=== PATIENT | male | born 1930 | race Caucasian/White ===

== ENCOUNTER 2016-08-28 07:31 | Emergency (ER) | payer MEDICARE, BC ==
[2016-08-28 07:55] VITALS: BP 161/98
--- NOTE | 2016-08-28 08:31 | EDM.PDOC ---
ED HPI GENERAL MEDICAL PROBLEM - General Chief Complaint: ENT Problem Stated Complaint: PAIN IN NECK UP TO HEAD, RT EYE WATERING Time Seen by Provider: 08/28/16 08:31 Source of Information: Reports: Patient, Family, RN, RN Notes Reviewed History Limitations: Reports: No Limitations - History of Present Illness INITIAL COMMENTS - FREE TEXT/NARRATIVE: Pt reports that he woke this morning with his right eye red with yellow matting on the eyelids/lashes. Denies eye pain, but states that it feels irritated and slightly itches. Denies FB sensation or injury. Pt also c/o neck pain since or Sunday with some radiating pain coming up from the upper neck along the right side of the back of his head up to the frontal scalp. Denies pain to touch of the scalp, numbness, or tingling. He has been seeing a chiropractor for neck and back pain once a week for "a long time". Denies fever, chills, ear pain, sore throat, sinus pain or congestion. Onset: Today Duration: Constant Location: Reports: Other (Rt eye) Severity: Moderate Improves with: Reports: None Worsens with: Reports: None Associated Symptoms: Reports: No Other Symptoms - Related Data Allergies Allergy/AdvReac Type Severity Reaction Status Date / Time alendronate sodium Allergy Cannot Verified 08/28/16 07:55 [From Fosamax] Remember pravastatin Allergy Cannot Verified 08/28/16 07:55 Remember simvastatin Allergy Cannot Verified 08/28/16 07:55 Remember calcium containing compounds Allergy Cannot Uncoded 11/20/15 09:57 Remember Home Meds: Home Meds Aspirin [Adult Low Dose Aspirin EC] 81 mg PO DAILY 11/20/15 [History] Atenolol [Atenolol] 1 tab PO DAILY 11/20/15 [History] Ezetimibe [Zetia] 1 tab PO ASDIRECTED 11/20/15 [History] Fluticasone Propionate [Flonase] 0 gm NASBOTH ASDIRECTED PRN 11/20/15 [History] LORazepam [Ativan] 0 mg PO ASDIRECTED PRN 11/20/15 [History] Loratadine [Claritin] 10 mg PO DAILY PRN 11/20/15 [History] Omeprazole Magnesium [Prilosec Otc] 20 mg PO BID 11/20/15 [History] Warfarin [Coumadin] 4 mg PO ASDIRECTED 11/20/15 [History] Colestipol HCl [Colestid] 8 gm PO BID 08/28/16 [History] Past Medical History HEENT History: Reports: Epistaxis, Hard of Hearing, Impaired Vision Cardiovascular History: Reports: Aneurysm, CAD, High Cholesterol, Hypertension Other Cardiovascular History: AAA Respiratory History: Reports: None Gastrointestinal History: Reports: Diverticulosis Genitourinary History: Reports: Chronic Renal Insuffiency Musculoskeletal History: Reports: Other (See Below) Other Musculoskeletal History: DJD Neurological History: Reports: None Psychiatric History: Reports: None Endocrine/Metabolic History: Reports: None Hematologic History: Reports: Iron Deficiency Immunologic History: Reports: None Oncologic (Cancer) History: Reports: Prostate Dermatologic History: Reports: None - Past Surgical History Cardiovascular Surgical History: Reports: Coronary Artery Bypass GI Surgical History: Reports: Appendectomy, Cholecystectomy Social & Family History - Family History Family Medical History: Noncontributory - Tobacco Use Smoking Status *Q: Never Smoker - Recreational Drug Use Recreational Drug Use: No - Living Situation & Occupation Occupation: Retired ED ROS ENT - Review of Systems Review Of Systems: ROS reveals no pertinent complaints other than HPI. ED EXAM, ENT - Physical Exam Exam: See Below Exam Limited By: No Limitations General Appearance: Alert, WD/WN, No Apparent Distress Eye Exam: Right Eye: Conjunctival Injection, Periorbital Changes (erythema w/ mild inflammation to Rt upper & lower eyelids w/yellow matting), Left Eye: Normal Inspection, Bilateral Eye: EOMI, Normal Fundi, PERRL Ears: Normal External Exam, Normal Canal, Hearing Grossly Normal, Normal TMs Nose: Normal Inspection, Normal Mucousa, No Blood Mouth/Throat: Normal Inspection Head: Atraumatic, Normocephalic. No: Scalp Swelling, Scalp Tenderness, Facial Swelling, Facial Tenderness, Sinus Tenderness Neck: Supple, Full Range of Motion (w/subjective report of some tenderness with B/L rotation. No nuchal rigidity.). No: Lymphadenopathy (L), Lymphadenopathy (R ) Respiratory/Chest: No Respiratory Distress, Lungs Clear Cardiovascular: Regular Rate, Rhythm, No Edema Back: Normal Inspection Extremities: Normal Inspection Neurological: Alert, Oriented, CN II-XII Intact, Normal Cognition, No Motor/ Sensory Deficits Psychiatric: Normal Mood Skin: Warm, Dry, Intact Course - Vital Signs Last Recorded V/S: Last Vital Signs Temp 35.8 C 08/28/16 07:45 Pulse 75 08/28/16 07:45 Resp 18 08/28/16 07:45 BP 161/98 H 08/28/16 07:45 Pulse Ox 99 08/28/16 07:45 - Orders/Labs/Meds Meds: Medications Discontinued Medications Generic Name Dose Route Start Last Admin Trade Name Erik PRN Reason Stop Dose Admin Gentamicin Sulfate 1 ml 08/28/16 08:41 Garamycin 0.3% Ophth Soln EYERT 08/28/16 08:42 ONETIME ONE Prednisolone Acetate 1 ml 08/28/16 08:41 Pred Forte 1% Ophth Susp EYERT 08/28/16 08:42 ONETIME ONE Departure - Departure Time of Disposition: 08:44 Disposition: Home, Self-Care 01 Condition: good Clinical Impression: Occipital neuralgia of right side Conjunctivitis Qualifiers: Conjunctivitis type: acute Acute conjunctivitis type: bacterial Laterality: right Qualified Code(s): H10.31 - Unspecified acute conjunctivitis, right eye - Discharge Information Instructions: Bacterial Conjunctivitis, [id number], Occipital Neuralgia Forms: ED Department Discharge Additional Instructions: Gentamicin eye drops: One drop into right eye four times a day for 5 days. Rx: Levaquin 500mg Follow up with your eye doctor in 1 to 2 days for recheck. Follow up with your primary doctor or return to ER if you develop any rash patches to the right side of your scalp or forehead.
[2016-08-28] MEDS ORDERED: prednisoLONE Acetate 1% Ophth Susp 5 ML Bottle EYERT ONE (08:41)
[2016-08-28] MEDS ORDERED: Gentamicin 0.3% Ophth Soln 5 ML Bottle EYERT ONE (08:41)
[2016-08-28] MEDS ORDERED: prednisoLONE Acetate 1% Ophth Susp 5 ML Bottle EYEBOTH ONE (11:53)
== END 2016-08-28 09:06 | disposition home or self-care (01) ==
LOC: DL.ED 07:31
DX: H10.31 Unspecified acute conjunctivitis, right eye (principal); M54.81 Occipital neuralgia; H54.7 Unspecified visual loss; E78.00 Pure hypercholesterolemia, unspecified; I12.9 Hypertensive chronic kidney disease with stage 1 through stage 4 chronic kidney disease, or unspecified chronic kidney disease; N18.9 Chronic kidney disease, unspecified; Z95.1 Presence of aortocoronary bypass graft; Z88.8 Allergy status to other drugs, medicaments and biological substances; Z79.82 Long term (current) use of aspirin; Z79.899 Other long term (current) drug therapy; Z79.01 Long term (current) use of anticoagulants; Z90.49 Acquired absence of other specified parts of digestive tract
CPT/HCPCS: 99283; A9270

== ENCOUNTER 2016-09-06 10:47 | Inpatient (IN) | payer MEDICARE, BC ==
[2016-09-06] MEDS ORDERED: guaiFENesin 100 MG/5 ML Soln 5 ML UD Cup PO PRN (15:40)
[2016-09-06] MEDS ORDERED: Ondansetron 4 MG Tab.DIS PO PRN (15:40)
[2016-09-06] MEDS ORDERED: Polyethylene Glycol 3350 Powder 17 GM Packet PO PRN (15:40)
[2016-09-06] MEDS ORDERED: Sodium Chloride 0.65% Nasal Spray 45 ML Bottle NAS PRN (15:40)
[2016-09-06] MEDS ORDERED: Loratadine 10 MG Tab PO PRN (15:44)
[2016-09-06] MEDS ORDERED: LORazepam 1 MG Tab PO PRN (15:44)
[2016-09-06] MEDS ORDERED: Fluticasone Propionate Nasal Spray 16 GM Bottle NASBOTH PRN (15:44)
[2016-09-06] MEDS ORDERED: Aluminum Hydroxide/Magnesium Hydroxide/Simethicone Susp 30 ML Cup PO PRN (15:44)
[2016-09-06] MEDS ORDERED: Warfarin 5 MG Tab PO SCH (15:45)
--- NOTE | 2016-09-06 15:53 | PCM.HP ---
H&P History of Present Illness - General Date of Service: 09/06/16 Admit Problem/Dx: Admission Diagnosis/Problem Admission Diagnosis/Problem Weakness Source of Information: Patient History Limitations: Reports: No Limitations - History of Present Illness Initial Comments - Free Text/Narative: 86-year-old male with past medical history of coronary artery disease, CABG, hypertension, hyperlipidemia, AAA, dementia, chronic anticoagulation for remote DVT presented from [facility] to swing bed for generalized weakness. He was admitted to the hospital initially for having right eye zoster infection. He was evaluated by infectious disease, and neurology and was treated with IV acyclovir then transitioned to oral Valtrex. He also was on IV steroids. During his hospitalization he developed delirium for a few days after admission. It was thought to be related to IV steroids/Decadron and Ativan usage and his dementia. CT of head showed no acute intracranial abnormalities. PCR of skin lesions detected herpes zoster. He is supposed to continue routine days of antiviral. So we will take Valtrex until Sunday. He is admitted to swing bed for generalized weakness and he will be having physical and occupational therapy - Related Data Allergies/Adverse Reactions: Allergies Allergy/AdvReac Type Severity Reaction Status Date / Time alendronate sodium Allergy Cannot Verified 09/06/16 14:06 [From Fosamax] Remember pravastatin Allergy Cannot Verified 09/06/16 14:06 Remember simvastatin Allergy Cannot Verified 09/06/16 14:06 Remember Home Medications: Home Meds Aspirin [Adult Low Dose Aspirin EC] 81 mg PO DAILY 11/20/15 [History] Atenolol [Atenolol] 50 mg PO DAILY 11/20/15 [History] Ezetimibe [Zetia] 10 mg PO DAILY 11/20/15 [History] LORazepam [Ativan] 0.5 mg PO ASDIRECTED PRN 11/20/15 [History] Loratadine [Claritin] 10 mg PO DAILY PRN 11/20/15 [History] Omeprazole Magnesium [Prilosec Otc] 20 mg PO BID 11/20/15 [History] Warfarin [Coumadin] 4 mg PO .SA.CHIRINOS 11/20/15 [History] Acetaminophen 650 mg PO Q4H PRN 09/06/16 [History] Ferrous Sulfate 325 mg PO ACBREAKFAST 09/06/16 [History] Fluticasone Propionate [Flonase] 2 spray NASBOTH DAILY PRN 09/06/16 [History] Gentamicin [Garamycin 0.3% Ophth Soln] 1 drop EYERT QID 09/06/16 [History] Latanoprost [Xalatan 0.005% Ophth Soln] 2.5 ml EYERT BEDTIME 09/06/16 [History] Mag Hydrox/Al Hydrox/Simeth [Maalox Maximum Strength Susp] 15 ml PO QID PRN [History] Warfarin [Coumadin] 5 mg PO .MO.WE.FR 09/06/16 [History] prednisoLONE Acetate [Pred Forte 1% Ophth Susp] 1 drop EYERT QID 09/06/16 [ History] valACYclovir [Valtrex] 1,000 mg PO TID 09/06/16 [History] Past Medical History HEENT History: Reports: Epistaxis, Hard of Hearing, Impaired Vision Cardiovascular History: Reports: Aneurysm, CAD, High Cholesterol, Hypertension Other Cardiovascular History: AAA Respiratory History: Reports: None Gastrointestinal History: Reports: Cholelithiasis, Diverticulosis, GERD Genitourinary History: Reports: Chronic Renal Insuffiency Musculoskeletal History: Reports: Osteoarthritis, Other (See Below) Other Musculoskeletal History: DJD Neurological History: Reports: None Psychiatric History: Reports: None Endocrine/Metabolic History: Reports: None Hematologic History: Reports: Iron Deficiency Immunologic History: Reports: None Oncologic (Cancer) History: Reports: Prostate Dermatologic History: Reports: None - Infectious Disease History Infectious Disease History: Reports: Chicken Pox, Shingles - Past Surgical History HEENT Surgical History: Reports: Cataract Surgery Cardiovascular Surgical History: Reports: AAA repair, Coronary Artery Bypass GI Surgical History: Reports: Appendectomy, Cholecystectomy Musculoskeletal Surgical History: Reports: Other (See Below) Other Musculoskeletal Surgeries/Procedures:: injections to knees for arthritic pain, sciatica Social & Family History - Family History Family Medical History: Noncontributory - Tobacco Use Smoking Status *Q: Never Smoker Second Hand Smoke Exposure: No - Caffeine Use Caffeine Use: Reports: Coffee, Soda - Recreational Drug Use Recreational Drug Use: No - Living Situation & Occupation Occupation: Retired H&P Review of Systems - Review of Systems: Review Of Systems: See Below General: Reports: No Symptoms HEENT: Reports: No Symptoms (Except rash on the face) Pulmonary: Reports: No Symptoms Cardiovascular: Reports: No Symptoms Gastrointestinal: Reports: No Symptoms Genitourinary: Reports: No Symptoms Musculoskeletal: Reports: No Symptoms Skin: Reports: No Symptoms Psychiatric: Reports: No Symptoms Neurological: Reports: No Symptoms Hematologic/Lymphatic: Reports: No Symptoms Immunologic: Reports: No Symptoms Exam - Exam Exam: See Below - Vital Signs Vital Signs: Last Vital Signs Temp 36.6 C 09/06/16 12:04 Pulse 79 09/06/16 12:04 Resp 20 09/06/16 12:04 BP 142/90 H 09/06/16 12:04 Pulse Ox 100 09/06/16 12:04 Weight: 73.028 kg - Exam General: Alert, Oriented, Cooperative, Mild Distress. No: Moderate Distress, Severe Distress, Sedated, Lethargic, Obtunded HEENT: Conjunctiva Clear, EACs Clear, EOMI, Hearing Intact, Mucosa Moist & Eliza , Nares Patent, Normal Nasal Septum, Posterior Pharynx Clear, Pupils Equal, Pupils Reactive, TMs Clear, Other (Right periorbital and frontal rash), PERRLA Neck: Supple, Trachea Midline, +2 Carotid Pulse wo Bruit Lungs: Clear to Auscultation, Normal Respiratory Effort Cardiovascular: Regular Rate, Regular Rhythm Abdomen: Normal Bowel Sounds, Soft, Pelvis Stable. No: Peritoneal Signs, Distention, Guarding, Rigidity, Rebound (Male) Exam: Deferred Rectal (Males) Exam: Deferred Back Exam: Normal Inspection, Full Range of Motion Extremities: Normal Inspection, Normal Pulses. No: Clubbing, Cyanosis, Calf Tenderness Skin: Warm, Dry, Intact Neurological: Cranial Nerves Intact, Strength Equal Bilateral, Normal Speech, Normal Tone, Sensation Intact Neuro Extensive - Mental Status: Alert, Oriented x3, Normal Mood/Affect, Normal Cognition, Memory Intact Neuro Extensive - Motor, Sensory, Reflexes: CN II-XII Intact, Normal Gait Psychiatric: Alert, Normal Affect, Normal Mood *Q Meaningful Use (ADM) - VTE *Q VTE Criteria *Q: - Stroke *Q Stroke Criteria *Q: - AMI *Q AMI Criteria *Q: - Problem List (1) Generalized weakness SNOMED Code(s): 44741725 ICD Code: R53.1 - WEAKNESS Status: Acute Current Visit: Yes (2) Herpes zoster ophthalmicus, right eye SNOMED Code(s): 02524429 ICD Code: B02.30 - ZOSTER OCULAR DISEASE, UNSPECIFIED Status: Acute Current Visit: Yes (3) History of coronary artery disease SNOMED Code(s): 186986106 ICD Code: Z86.79 - PERSONAL HISTORY OF OTHER DISEASES OF THE CIRCULATORY SYSTEM Status: Chronic Current Visit: Yes (4) Chronic anticoagulation SNOMED Code(s): 398336008 ICD Code: Z79.01 - RESIDENTIAL (CURRENT) USE OF ANTICOAGULANTS Status: Chronic Current Visit: Yes (5) Hyperlipidemia SNOMED Code(s): 34588362 ICD Code: E78.5 - HYPERLIPIDEMIA, UNSPECIFIED Status: Chronic Current Visit: Yes (6) Anemia SNOMED Code(s): 809307947 ICD Code: D64.9 - ANEMIA, UNSPECIFIED Status: Chronic Current Visit: Yes (7) History of prostate cancer SNOMED Code(s): 618214376 ICD Code: Z85.46 - PERSONAL HISTORY OF MALIGNANT NEOPLASM OF PROSTATE Status: Chronic Current Visit: Yes (8) Low TSH level SNOMED Code(s): 963429895 ICD Code: R94.6 - ABNORMAL RESULTS OF THYROID FUNCTION STUDIES Status: Acute Current Visit: Yes Problem List Initiated/Reviewed/Updated: Yes Orders Last 24hrs: Active Orders 24 hr Category Date Time Status Patient Status [ADT] Routine ADT 09/06/16 15:40 Active Ambulate [RC] ASDIRECTED Care 09/06/16 15:40 Active Antiembolic Devices [RC] PER UNIT ROUTINE Care 09/06/16 15:43 Active Height and Weight [RC] WEEKLY Care 09/06/16 15:41 Active Intake and Output [RC] ASDIRECTED Care 09/06/16 15:40 Active May Shower [RC] ASDIRECTED Care 09/06/16 15:40 Active Notify Provider Vital Signs [RC] ASDIRECTED Care 09/06/16 15:41 Active Oxygen Therapy [RC] PRN Care 09/06/16 15:40 Active Up With Assistance [RC] ASDIRECTED Care 09/06/16 15:40 Active Up ad Shala [RC] ASDIRECTED Care 09/06/16 15:40 Active VTE/DVT Education [RC] PER UNIT ROUTINE Care 09/06/16 15:40 Active Vital Signs [RC] PER UNIT ROUTINE Care 09/06/16 15:40 Active OT Evaluation and Treatment [CONS] Routine Cons 09/06/16 15:40 Active PT Evaluation and Treatment [CONS] Routine Cons 09/06/16 15:40 Active Regular Diet [DIET] Diet 09/06/16 Breakfast Active Acetaminophen [Tylenol] Med 09/06/16 15:40 Ordered 650 mg PO Q4H PRN Aspirin [Halfprin] Med 09/07/16 09:00 Ordered 81 mg PO DAILY Atenolol [Tenormin] Med 09/07/16 09:00 Ordered 50 mg PO DAILY Docusate Sodium [Colace] Med 09/06/16 15:40 Ordered 100 mg PO BID PRN Ezetimibe [Zetia] Med 09/07/16 09:00 Ordered 10 mg PO DAILY Ferrous Sulfate Med 09/07/16 06:00 Ordered 325 mg PO ACBREAKFAST Fluticasone Propionate [Flonase] Med 09/06/16 15:44 Ordered 2 spray NASBOTH DAILY PRN Gentamicin [Garamycin 0.3% Ophth Soln] Med 09/06/16 17:00 Ordered 1 drop EYERT QID LORazepam [Ativan] Med 09/06/16 15:44 Ordered 0.5 mg PO ASDIRECTED PRN Latanoprost [Xalatan 0.005% Ophth Soln] Med 09/06/16 21:00 Ordered 2.5 ml EYERT BEDTIME Loratadine [Claritin] Med 09/06/16 15:44 Ordered 10 mg PO DAILY PRN Mag Hydrox/Al Hydrox/Simeth [Maalox Maximum Strength Med 09/06/16 15:44 Ordered Susp] 15 ml PO QID PRN Omeprazole Magnesium [Prilosec Otc] Med 09/06/16 21:00 Ordered 20 mg PO BID Ondansetron [Zofran ODT] Med 09/06/16 15:40 Ordered 4 mg PO Q6H PRN Polyethylene Glycol 3350 [MiraLAX] Med 09/06/16 15:40 Ordered 17 gm PO DAILY PRN Sodium Chloride 0.65% [[place] Nasal Sheldon] Med 09/06/16 15:40 Ordered 1 ml CASSIE BID PRN Warfarin Med 09/06/16 15:45 Ordered 4 mg PO .. Warfarin [Coumadin] Med 09/06/16 15:45 Ordered 5 mg PO .MO guaiFENesin [Robitussin] Med 09/06/16 15:40 Ordered 100 mg PO Q4H PRN prednisoLONE Acetate [Pred Forte 1% Ophth Susp] Med 09/06/16 17:00 Ordered 1 drop EYERT QID valACYclovir [Valtrex] Med 09/06/16 21:00 Ordered 1,000 mg PO TID Antiembolic Hose [OM.PC] Per Unit Routine Oth 09/06/16 15:42 Ordered Resuscitation Status Routine Resus Stat 09/06/16 15:40 Ordered Medication Orders Acetaminophen (Tylenol) 650 mg PO Q4H PRN PRN Reason: Pain (Mild 1-3)/fever Docusate Sodium (Colace) 100 mg PO BID PRN PRN Reason: Constipation Guaifenesin (Robitussin) 100 mg PO Q4H PRN PRN Reason: Cough Ondansetron HCl (Zofran Odt) 4 mg PO Q6H PRN PRN Reason: nausea, able to take PO Polyethylene Glycol (Miralax) 17 gm PO DAILY PRN PRN Reason: Constipation Sodium Chloride ([place] Nasal Sheldon) 1 ml CASSIE BID PRN PRN Reason: Nasal Congestion Assessment/Plan Comment:: Generalized weakness, due to multiple reasons, such as recent hospitalization, steroids treatment, herpes zoster, multiple morbidities Encourage ambulation with assistance Occupational and physical therapy Right side herpes zoster ophthalmicus: 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 The rash is a crusted Continue Valtrex for another 11 doses, to complete 10 days of antiviral course Continue with the gentamicin eye Drops, Pred Forte eyedrops q.i.d. in the right eye, latanoprost eyedrops nightly as well. History of Coronary artery disease, stable. Continue the aspirin, atenolol, and Zetia at this time. Essential Hypertension Continue on atenolol Hyperlipidemia Continue on Zetia. Chronic anticoagulation with Coumadin. 4 remote history of bilateral DVT Pharmacy to dose his Coumadin Low TSH Recheck TSH Needs to be addressed by primary care provider History Deep venous thrombosis prophylaxis with Coumadin. Continue Coumadin to keep INR therapeutic Recent Delirium during hospitalization, now resolved, History of dementia Provide suitable environment He wants to be full code
[2016-09-06] MEDS: PREDNISOLONE ACETATE 1% EYERT SCH ×2 (18:01→20:36)
[2016-09-06] MEDS: Omeprazole 20 MG Cap.CR PO SCH (18:01)
[2016-09-06] MEDS: GENTAMICIN 0.3% EYERT SCH ×2 (18:01→20:33)
[2016-09-06] MEDS: LATANOPROST 0.005% EYERT SCH (20:38)
[2016-09-06] MEDS: VALACYCLOVIR 1000 MG PO SCH (20:38)
[2016-09-07] MEDS: Ferrous Sulfate 325 MG Tab PO SCH (06:34)
[2016-09-07] MEDS: Omeprazole 20 MG Cap.CR PO SCH ×2 (06:34→16:33)
[2016-09-07] MEDS: Atenolol 50 MG Tab PO SCH (08:41)
[2016-09-07] MEDS: Ezetimibe 10 MG Tab PO SCH (08:41)
[2016-09-07] MEDS: GENTAMICIN 0.3% EYERT SCH ×4 (08:41→22:20)
[2016-09-07] MEDS: Aspirin 81 MG Tab.EC PO SCH (08:42)
[2016-09-07] MEDS: PREDNISOLONE ACETATE 1% EYERT SCH ×4 (08:44→22:16)
[2016-09-07] MEDS: VALACYCLOVIR 1000 MG PO SCH ×3 (08:45→22:18)
[2016-09-07] MEDS ORDERED: Warfarin 2 MG Tab PO SCH (14:00)
[2016-09-07] MEDS ORDERED: Warfarin 2 MG Tab PO ONE (14:00)
[2016-09-07] MEDS: LATANOPROST 0.005% EYERT SCH (22:22)
[2016-09-08] MEDS: Ferrous Sulfate 325 MG Tab PO SCH (06:01)
[2016-09-08] MEDS: Omeprazole 20 MG Cap.CR PO SCH ×2 (06:01→18:18)
[2016-09-08] MEDS: Aspirin 81 MG Tab.EC PO SCH (10:41)
[2016-09-08] MEDS: Ezetimibe 10 MG Tab PO SCH (10:41)
[2016-09-08] MEDS: Atenolol 50 MG Tab PO SCH (10:41)
[2016-09-08] MEDS: VALACYCLOVIR 1000 MG PO SCH ×3 (10:43→20:42)
[2016-09-08] MEDS: GENTAMICIN 0.3% EYERT SCH ×4 (10:44→20:40)
[2016-09-08] MEDS: PREDNISOLONE ACETATE 1% EYERT SCH ×4 (10:44→20:41)
[2016-09-08] MEDS: LATANOPROST 0.005% EYERT SCH (20:41)
[2016-09-09] MEDS: Ferrous Sulfate 325 MG Tab PO SCH (05:34)
[2016-09-09] MEDS: Omeprazole 20 MG Cap.CR PO SCH ×2 (05:34→17:55)
[2016-09-09] MEDS: GENTAMICIN 0.3% EYERT SCH ×4 (09:41→21:37)
[2016-09-09] MEDS: VALACYCLOVIR 1000 MG PO SCH ×3 (09:42→21:36)
[2016-09-09] MEDS: Aspirin 81 MG Tab.EC PO SCH (09:43)
[2016-09-09] MEDS: Ezetimibe 10 MG Tab PO SCH (09:43)
[2016-09-09] MEDS: PREDNISOLONE ACETATE 1% EYERT SCH ×4 (09:43→21:38)
[2016-09-09] MEDS: Atenolol 50 MG Tab PO SCH (09:44)
[2016-09-09] MEDS: Gabapentin 100 MG Cap PO SCH ×2 (13:47→21:33)
[2016-09-09] MEDS: LATANOPROST 0.005% EYERT SCH (21:42)
[2016-09-09] MEDS: Acetaminophen 325 MG Tab PO PRN (21:53)
[2016-09-10] MEDS: Omeprazole 20 MG Cap.CR PO SCH ×2 (05:34→17:51)
[2016-09-10] MEDS: Ferrous Sulfate 325 MG Tab PO SCH (05:34)
[2016-09-10] MEDS: VALACYCLOVIR 1000 MG PO SCH (09:46)
[2016-09-10] MEDS: Aspirin 81 MG Tab.EC PO SCH (09:46)
[2016-09-10] MEDS: Atenolol 50 MG Tab PO SCH (09:46)
[2016-09-10] MEDS: Ezetimibe 10 MG Tab PO SCH (09:46)
[2016-09-10] MEDS: Gabapentin 100 MG Cap PO SCH ×3 (09:47→22:44)
[2016-09-10] MEDS: GENTAMICIN 0.3% EYERT SCH ×4 (09:48→22:42)
[2016-09-10] MEDS: PREDNISOLONE ACETATE 1% EYERT SCH ×4 (09:48→22:46)
[2016-09-10] MEDS: LATANOPROST 0.005% EYERT SCH (22:47)
[2016-09-11] MEDS: Omeprazole 20 MG Cap.CR PO SCH ×2 (05:55→18:05)
[2016-09-11] MEDS: Ferrous Sulfate 325 MG Tab PO SCH (05:55)
--- NOTE | 2016-09-11 06:46 | PN ---
DATE: 09/09/2016 SUBJECTIVE: The patient this morning is complaining of itching and burning pain on the right side of the his face, and this is the site where the scabbing of the herpes zoster. He is also complaining of some mild nausea. The patient denies any chest pain, shortness of breath, fever, or chills. So far, the patient has been lucid. OBJECTIVE: Vital Signs: Blood pressure is 147/81, pulse 78, respirations 20, temperature of 97.8. SHEENT: Still remarkable for some redness and scabbing on the right side of the head and face. There are no signs of secondary bacterial infection. Heart: Regular rate and rhythm. Normal S1 and S2. No gallops. No rubs. Lungs: Clear. No crackles. No wheezing. Abdomen: Soft and nontender. Extremities: Negative for any significant pedal edema. No calf tenderness. MEDICATIONS: Reviewed. PLAN: We will continue with his Valtrex and the rest of his medication. I am also going to start the patient on gabapentin 300 mg a day, and we will give him some Zofran for nausea. [facility] /[id number]
[2016-09-11] MEDS: Acetaminophen 325 MG Tab PO PRN ×2 (08:12→13:32)
[2016-09-11] MEDS ORDERED: Sodium Chloride 0.9% 10 ML Syringe FLUSH PRN (10:17)
[2016-09-11] MEDS: PREDNISOLONE ACETATE 1% EYERT SCH ×4 (11:07→20:29)
[2016-09-11] MEDS: Ezetimibe 10 MG Tab PO SCH (11:07)
[2016-09-11] MEDS: Atenolol 50 MG Tab PO SCH (11:07)
[2016-09-11] MEDS: GENTAMICIN 0.3% EYERT SCH ×4 (11:08→20:31)
[2016-09-11] MEDS: Gabapentin 100 MG Cap PO SCH ×3 (11:08→20:28)
[2016-09-11 11:15] LABS: CHLORIDE,CL 93 mmol/L (101-111); SODIUM,NA 128 mmol/L (135-145)
[2016-09-11] MEDS: Sodium Chloride 0.9% 1,000 ML IV SCH (12:57)
[2016-09-11] MEDS: Aspirin 81 MG Tab.EC PO SCH (13:32)
[2016-09-11] MEDS ORDERED: Warfarin 5 MG Tab PO ONE (14:00)
[2016-09-11] MEDS: LATANOPROST 0.005% EYERT SCH (20:33)
[2016-09-12] MEDS: Sodium Chloride 0.9% 1,000 ML IV SCH (04:03)
[2016-09-12] MEDS: Ferrous Sulfate 325 MG Tab PO SCH (05:37)
[2016-09-12] MEDS: Omeprazole 20 MG Cap.CR PO SCH ×2 (05:37→16:33)
[2016-09-12] MEDS: Ezetimibe 10 MG Tab PO SCH (08:21)
[2016-09-12] MEDS: Atenolol 50 MG Tab PO SCH (08:21)
[2016-09-12] MEDS: Gabapentin 100 MG Cap PO SCH ×3 (08:21→21:36)
[2016-09-12] MEDS: Aspirin 81 MG Tab.EC PO SCH (08:23)
[2016-09-12] MEDS: PREDNISOLONE ACETATE 1% EYERT SCH ×4 (08:24→21:38)
[2016-09-12] MEDS: GENTAMICIN 0.3% EYERT SCH ×4 (08:24→21:35)
[2016-09-12] MEDS: Levofloxacin 500 MG Tab PO SCH (11:57)
[2016-09-12] MEDS ORDERED: Warfarin 5 MG Tab PO ONE (14:00)
[2016-09-12] MEDS: LATANOPROST 0.005% EYERT SCH (21:55)
[2016-09-13] MEDS: Omeprazole 20 MG Cap.CR PO SCH ×2 (06:06→16:58)
[2016-09-13] MEDS: Ferrous Sulfate 325 MG Tab PO SCH (06:06)
--- NOTE | 2016-09-13 08:14 | PN ---
DATE: 09/12/2016 This note covers observations and orders of September 11 and . Mr. Echevarria is an 86-year-old gentleman with multiple medical problems including coronary artery disease with CABG, hypertension, dyslipidemia, AAA, cognitive impairment, chronic anticoagulation for remote DVT. He was admitted to swing bed following an acute admission to [place], when he presented with extensive right-sided herpes zoster of the head and face. Although he has extensive cutaneous involvement around the right eye, the eye itself apparently has been spared from viral infection. While in [place], he was seen by Infectious Disease and Neurology. He was initially treated with IV acyclovir, then transitioned to oral Valtrex. He was started on IV steroids, but unfortunately did not react to them well and had an increase in confusion and delirium. Steroids were stopped and he was placed on gabapentin for control of neuropathic pain. A head CT performed in [place] showed no acute intracranial abnormalities. PCR testing of the skin lesions was done and confirmed herpes zoster. He completed his course of Valtrex on September 10. He is now admitted to swing bed for generalized weakness and to work with Physical and Occupational Therapy. When first seen on the morning of September 11, he was quite lethargic, family was understandably concerned about his condition. He was noted also to have a temperature spike early in the morning of the to 101.2 degrees. There was no increase in confusion or encephalopathy. Because of the fever, we did a workup looking for a source. A portable chest x- ray was obtained, which did not show any acute infiltrate. There were no effusions. There was no pulmonary venous congestion. The aorta is ectatic. Lab work also included 2 sets of blood cultures, which have remained without growth. CBC showed a slightly elevated white count of 12.9, with 80% neutrophils, 14% lymphocytes. Hemoglobin and hematocrit were stable at 15.4 and 46.9, platelets were normal. Chemistry showed a sodium of 128, potassium 4.6, BUN and creatinine were preserved at 25 and 0.9, with a GFR of more than 60. LFTs showed a mildly elevated alk phos of 247. Urinalysis showed a clear yellow urine with a specific gravity of 1.010, and negative microscopic exam. Because the workup was nonfocal, we did not immediately start an antibiotic. We did start him on IV fluids though and placed him on normal saline. No other changes were made in his medications. Over the course of the day on the , he slowly improved, he became more alert, he voiced no new concerns or complaints. The extensive herpetic lesions on the right side of the face are drying up. There was no sign of associated cellulitis. Lab work was repeated on the morning of the . White count had increased slightly to 13,900, with 83% neutrophils, 8% lymphocytes, INR was 1.9, sodium had improved to 134. Blood cultures remained without growth. Because of the slight increase in the white count and the fact that we could not completely exclude some occult infection, particularly with the extensive herpetic lesions, we opted to start him on Levaquin 500 mg a day by mouth. He was seen frequently over the day, and he actually has continued to improve significantly throughout Sunday and Sunday. He was up and ambulatory with therapy, was able to walk from his room all the way back to the therapy room. He was looking and feeling better. He was able to talk to me today and he knew that he was feeling better. His memory of yesterday was somewhat clouded. He remembers that he did not feel well, but cannot give any specifics, but does say that he is feeling much better. I have spoken with his daughter several times and family also agrees that he is much improved. Family has also been concern with issues of placement following hospital stay. Family did go with Mrs. Echevarria to [facility], and they have decided to take an apartment in the assisted living center and family is also much relieved by this. Mr. Echevarria is in agreement with the move and family will begin the process of getting them moved there after discharge. Overall, things are looking better. Review of his clinical data shows that he is taking in adequate fluids, he is voiding, moving his bowels, appetite is improving, and he is tolerating his diet. Vital signs are stable. He has remained afebrile since the morning of September 11. PHYSICAL EXAMINATION: General: He is in bed, but he is awake and alert, clearly improved since yesterday. He voices no new concerns or complaints. He is able to say, however, that he is definitely feeling better. Vital Signs: Blood pressure 138/78, later in the day 117/82; pulse 76 and regular; respiratory rate 20 and unlabored; oxygen saturation high 90% on room air; and he has remained afebrile now for more than 24 hours. HEENT: Shows extensive resolving lesions on the right side of the face and scalp from his recent herpes zoster outbreak. The scabs are drying. There is no sign of extensive cellulitis. The right eyelid remains somewhat puffy and closed. HEENT was otherwise unremarkable. Mouth showed moist mucous membranes. Chest: Showed clear, but diminished bilateral breath sounds. Heart: Showed regular rate and rhythm. Abdomen: Soft, benign, nontender. Extremities: Showed YOVANI hose in place. The calves were soft and nontender. Neurologic: He was intact. He was able to be up and ambulatory with the use of his walker and standby assist. IMPRESSION: An 86-year-old gentleman with complicated medical course as described above. He is now improving over the last 48 hours with the use of IV fluids in the addition of an oral antibiotic. PLAN: We will continue the present management. We have stopped his IV fluids and Hep-Lock will be removed. He will continue on his usual medications and will complete a 7-day course of the oral Levaquin. Overall, he is much improved and stable. [facility] /[id number] CIELO
[2016-09-13] MEDS: Ezetimibe 10 MG Tab PO SCH (09:57)
[2016-09-13] MEDS: Gabapentin 100 MG Cap PO SCH ×3 (09:57→21:50)
[2016-09-13] MEDS: Aspirin 81 MG Tab.EC PO SCH (09:57)
[2016-09-13] MEDS: Atenolol 50 MG Tab PO SCH (09:57)
[2016-09-13] MEDS: PREDNISOLONE ACETATE 1% EYERT SCH ×4 (09:59→21:53)
[2016-09-13] MEDS: GENTAMICIN 0.3% EYERT SCH ×4 (09:59→21:51)
[2016-09-13] MEDS: Levofloxacin 500 MG Tab PO SCH (13:08)
[2016-09-13] MEDS: Acetaminophen 325 MG Tab PO PRN ×3 (13:11→21:59)
[2016-09-13] MEDS ORDERED: Warfarin 2 MG Tab PO ONE (14:00)
[2016-09-13] MEDS: LATANOPROST 0.005% EYERT SCH (21:55)
[2016-09-14] MEDS: Omeprazole 20 MG Cap.CR PO SCH ×2 (05:44→18:18)
[2016-09-14] MEDS: Ferrous Sulfate 325 MG Tab PO SCH (05:44)
[2016-09-14] MEDS: Acetaminophen 325 MG Tab PO PRN ×3 (07:40→18:38)
[2016-09-14] MEDS: Gabapentin 100 MG Cap PO SCH ×3 (09:32→21:10)
[2016-09-14] MEDS: Aspirin 81 MG Tab.EC PO SCH (09:33)
[2016-09-14] MEDS: Ezetimibe 10 MG Tab PO SCH (09:33)
[2016-09-14] MEDS: Atenolol 50 MG Tab PO SCH (09:34)
[2016-09-14] MEDS: PREDNISOLONE ACETATE 1% EYERT SCH ×4 (09:35→21:10)
[2016-09-14] MEDS: GENTAMICIN 0.3% EYERT SCH ×4 (09:35→21:13)
[2016-09-14] MEDS: Levofloxacin 500 MG Tab PO SCH (12:55)
[2016-09-14] MEDS ORDERED: Warfarin 2 MG Tab PO ONE (14:00)
[2016-09-14] MEDS: Vitamins A and D Oint 56.7 GM Tube TOP SCH ×2 (15:26→21:11)
[2016-09-14] MEDS: LATANOPROST 0.005% EYERT SCH (21:14)
--- NOTE | 2016-09-15 00:49 | PN ---
DATE: 09/14/2016 SUBJECTIVE: Mr. Echevarria is an 86-year-old gentleman with multiple medical problems. He was admitted to swing bed from [facility] where he was treated for an acute infection of herpes zoster of the right side of the head and face. Although he has periorbital soft tissue involvement. There was no involvement found of the eye itself. Earlier this week, he had developed a temperature of 101.2. Workup on that day showed negative chest x-ray and urine and blood cultures. The blood cultures have now remained without growth for 3 days. Because of his lethargy and fever, he was started on IV fluids for 24 hours and was empirically started on Levaquin for 7 days. By the next morning, he was much improved. On exam today, he was seated in his recliner. He looks much better. His color is improved. His face is more filled out. He is much more alert and participates throughout the visit. He is up and ambulatory with therapy. He voiced no new concerns or complaints. OBJECTIVE: Vital Signs: Blood pressure was 118/93, pulse 93, respiratory rate 20, oxygen saturation 100% on room air, and he is now remained afebrile since the temperature spike of 101 three days ago. Otherwise, his highest temperature has been 99.8. HEENT: Shows the neck to be supple. There are no meningeal signs. There is extensive scabbing, which is very tight and covers the right scalp, forehead, and surrounds the right eye. The right eye lid is quite indurated and staff with the scabbing and is difficult for him to actually fully open the eyelid. Chest: Clear but diminished bilateral breath sounds. Heart: Regular rate and rhythm. Abdomen: Benign. Neurologic: Intact. ASSESSMENT AND PLAN: We ordered A and D ointment to be applied topically 3 times a day to the area of the scabbing in an effort to soften the scabs. Hopefully, this will help him get the eye open. I did have a chance later to speak to one of the local cardiac technician regarding this, and she agreed with the approach we are taking. Otherwise, overall he is doing much better. The family will now be moving and Mrs. Mendoza into an assisted living complex at the end of next week. He has a care conference scheduled for Sunday, the , and discharge planning will be discussed at that time. No other changes are made today. [facility] /[id number] MTDЕлена
[2016-09-15] MEDS: Acetaminophen 325 MG Tab PO PRN ×2 (03:03→10:24)
[2016-09-15] MEDS: Omeprazole 20 MG Cap.CR PO SCH ×2 (06:29→18:10)
[2016-09-15] MEDS: Ferrous Sulfate 325 MG Tab PO SCH (06:29)
[2016-09-15] MEDS: Atenolol 50 MG Tab PO SCH (09:38)
[2016-09-15] MEDS: Gabapentin 100 MG Cap PO SCH ×3 (09:38→20:33)
[2016-09-15] MEDS: Ezetimibe 10 MG Tab PO SCH (09:39)
[2016-09-15] MEDS: Aspirin 81 MG Tab.EC PO SCH (09:39)
[2016-09-15] MEDS: PREDNISOLONE ACETATE 1% EYERT SCH ×4 (09:40→20:39)
[2016-09-15] MEDS: Vitamins A and D Oint 56.7 GM Tube TOP SCH ×3 (09:41→20:35)
[2016-09-15] MEDS: GENTAMICIN 0.3% EYERT SCH ×4 (09:43→20:46)
[2016-09-15] MEDS: Levofloxacin 500 MG Tab PO SCH (12:03)
[2016-09-15] MEDS ORDERED: Warfarin 2 MG Tab PO ONE (15:15)
[2016-09-15] MEDS: Lidocaine 5% 700 MG Patch TOP SCH (16:41)
[2016-09-15] MEDS: Acetaminophen 325 MG Tab PO SCH (20:33)
[2016-09-15] MEDS: LATANOPROST 0.005% EYERT SCH (20:48)
[2016-09-16] MEDS: Omeprazole 20 MG Cap.CR PO SCH ×2 (05:56→16:56)
[2016-09-16] MEDS: Ferrous Sulfate 325 MG Tab PO SCH (05:56)
[2016-09-16] MEDS: GENTAMICIN 0.3% EYERT SCH ×4 (08:01→21:26)
[2016-09-16] MEDS: Aspirin 81 MG Tab.EC PO SCH (08:05)
[2016-09-16] MEDS: Gabapentin 100 MG Cap PO SCH ×3 (08:09→21:20)
[2016-09-16] MEDS: Lidocaine 5% 700 MG Patch TOP SCH ×2 (08:09→13:07)
[2016-09-16] MEDS: Atenolol 50 MG Tab PO SCH (08:10)
[2016-09-16] MEDS: PREDNISOLONE ACETATE 1% EYERT SCH ×4 (08:10→21:14)
[2016-09-16] MEDS: Acetaminophen 325 MG Tab PO SCH ×3 (08:11→21:20)
[2016-09-16] MEDS: Ezetimibe 10 MG Tab PO SCH (08:11)
[2016-09-16] MEDS: Vitamins A and D Oint 56.7 GM Tube TOP SCH ×3 (08:13→21:15)
[2016-09-16] MEDS: Levofloxacin 500 MG Tab PO SCH (12:15)
[2016-09-16] MEDS: Acetaminophen 325 MG Tab PO PRN ×2 (12:15→18:35)
[2016-09-16] MEDS: LATANOPROST 0.005% EYERT SCH (21:19)
[2016-09-17] MEDS: Ferrous Sulfate 325 MG Tab PO SCH (05:56)
[2016-09-17] MEDS: Omeprazole 20 MG Cap.CR PO SCH ×2 (05:57→16:07)
[2016-09-17] MEDS: Acetaminophen 325 MG Tab PO PRN ×3 (06:05→16:07)
[2016-09-17] MEDS: Acetaminophen 325 MG Tab PO SCH ×3 (08:10→20:59)
[2016-09-17] MEDS: Ezetimibe 10 MG Tab PO SCH (08:12)
[2016-09-17] MEDS: Atenolol 50 MG Tab PO SCH (08:12)
[2016-09-17] MEDS: Aspirin 81 MG Tab.EC PO SCH (08:12)
[2016-09-17] MEDS: Gabapentin 100 MG Cap PO SCH ×3 (08:13→20:59)
[2016-09-17] MEDS: PREDNISOLONE ACETATE 1% EYERT SCH ×4 (08:14→21:06)
[2016-09-17] MEDS: GENTAMICIN 0.3% EYERT SCH ×4 (08:17→20:59)
[2016-09-17] MEDS: Lidocaine 5% 700 MG Patch TOP SCH ×2 (10:35)
[2016-09-17] MEDS: Vitamins A and D Oint 56.7 GM Tube TOP SCH ×3 (10:36→21:01)
[2016-09-17] MEDS: Levofloxacin 500 MG Tab PO SCH (12:10)
[2016-09-17] MEDS ORDERED: Gabapentin 100 MG Cap PO ONE (16:53)
[2016-09-17] MEDS: LATANOPROST 0.005% EYERT SCH (21:03)
[2016-09-18] MEDS: Ferrous Sulfate 325 MG Tab PO SCH (05:53)
[2016-09-18] MEDS: Omeprazole 20 MG Cap.CR PO SCH ×2 (05:53→16:57)
[2016-09-18 06:53] LABS: CHLORIDE,CL 96 mmol/L (101-111); SODIUM,NA 133 mmol/L (135-145)
[2016-09-18] MEDS: Aspirin 81 MG Tab.EC PO SCH (08:50)
[2016-09-18] MEDS: GENTAMICIN 0.3% EYERT SCH ×4 (08:50→21:18)
[2016-09-18] MEDS: Lidocaine 5% 700 MG Patch TOP SCH ×2 (08:50)
[2016-09-18] MEDS: Gabapentin 100 MG Cap PO SCH ×3 (08:51→21:20)
[2016-09-18] MEDS: Acetaminophen 325 MG Tab PO SCH ×3 (08:51→21:20)
[2016-09-18] MEDS: Ezetimibe 10 MG Tab PO SCH (08:52)
[2016-09-18] MEDS: PREDNISOLONE ACETATE 1% EYERT SCH ×4 (08:52→21:23)
[2016-09-18] MEDS: Vitamins A and D Oint 56.7 GM Tube TOP SCH ×3 (08:52→21:22)
[2016-09-18] MEDS: Atenolol 50 MG Tab PO SCH (08:52)
--- NOTE | 2016-09-18 11:54 | PCM.PN ---
- General Info Date of Service: 09/18/16 Admission Dx/Problem (Free Text): Admission Diagnosis/Problem Admission Diagnosis/Problem Weakness Subjective Update: Mr. Echevarria is feeling well, the pain in the right side of forehead and scalp is still present. The associated rash is improving. No new symptoms. He is working with physical therapy and occupational therapy. No chest pain, no shortness of breath, no fever. - Review of Systems General: Reports: Weakness. Denies: Fever Cardiovascular: Denies: Chest Pain Gastrointestinal: Denies: Abdominal pain Neurological: Denies: Confusion - Patient Data Vitals - most recent: Last Vital Signs Temp 36.9 C 09/18/16 07:38 Pulse 84 09/18/16 08:52 Resp 20 09/18/16 07:38 BP 110/64 09/18/16 08:52 Pulse Ox 97 09/18/16 07:38 Weight - most recent: 72.938 kg I&O - last 24 hours: Intake & Output 09/17/16 09/18/16 09/18/16 22:59 06:59 14:59 Intake Total 320 240 Balance 320 240 Lab Results last 24 hrs: Laboratory Results - last 24 hr 09/18/16 09/18/16 09/18/16 Range/Units 05:45 05:45 05:45 WBC 11.0 H (5.0-10.0) 10^3/uL Neut % (Auto) 79.9 H (42.2-75.2) % Lymph % (Auto) 10.3 L (20.5-50.1) % [place] % (Auto) 8.2 H (2-8) % Eos % (Auto) 1.4 (1.0-3.0) % Baso % (Auto) 0.2 (0.0-1.0) % PT 34.2 H (9.0-12.0) SEC INR 3.4 H (0.9-1.2) Sodium 133 L (135-145) mmol/L Potassium 4.5 (3.6-5.0) mmol/L Chloride 96 L (101-111) mmol/L Carbon Dioxide 27.0 (21.0-31.0) mmol/L Anion Gap 14.5 BUN 24 H (7-18) mg/dL Creatinine 0.9 (0.6-1.3) mg/dL Est Cr Clr Drug Dosing 58.06 mL/min Estimated GFR (MDRD) > 60 Glucose 92 (74-105) mg/dL Calcium 8.6 (8.4-10.2) mg/dl Med Orders - Current: Current Medications Acetaminophen (Tylenol) 650 mg PO Q4H PRN PRN Reason: Pain (Mild 1-3)/fever Last Admin: 09/17/16 16:07 Dose: 650 mg Acetaminophen (Tylenol) 325 mg PO TID [facility] Last Admin: 09/18/16 08:51 Dose: 325 mg Al Hydroxide/Mg Hydroxide (Mag-Al Plus) 15 ml PO QID PRN PRN Reason: Indigestion Aspirin (Halfprin) 81 mg PO DAILY [facility] Last Admin: 09/18/16 08:50 Dose: 81 mg Atenolol (Tenormin) 50 mg PO DAILY [facility] Last Admin: 09/18/16 08:52 Dose: 50 mg Docusate Sodium (Colace) 100 mg PO BID PRN PRN Reason: Constipation Ezetimibe (Zetia) 10 mg PO DAILY [facility] Last Admin: 09/18/16 08:52 Dose: 10 mg Ferrous Sulfate (Ferrous Sulfate) 325 mg PO ACBREAKFAST [facility] Last Admin: 09/18/16 05:53 Dose: 325 mg Fluticasone Propionate (Flonase) 0 gm NASBOTH DAILY PRN PRN Reason: Rhinitis Gabapentin (Neurontin) 200 mg PO TID [facility] Last Admin: 09/18/16 08:51 Dose: 200 mg Gentamicin Sulfate (Garamycin 0.3% Ophth Soln) 0 ml EYERT QID [facility] Last Admin: 09/18/16 08:50 Dose: 1 drop Guaifenesin (Robitussin) 100 mg PO Q4H PRN PRN Reason: Cough Latanoprost (Xalatan 0.005% Ophth Soln) 0 ml EYERT BEDTIME [facility] Last Admin: 09/17/16 21:03 Dose: 1 drop Levofloxacin (Levaquin) 500 mg PO Q24H [facility] Stop: 09/19/16 12:01 Last Admin: 09/17/16 12:10 Dose: 500 mg Lidocaine (Lidoderm 5%) 700 mg TOP DAILY [facility] Last Admin: 09/18/16 08:50 Dose: 700 mg Lidocaine (Lidoderm 5%) 700 mg TOP DAILY [facility] Last Admin: 09/18/16 08:50 Dose: 700 mg Loratadine (Claritin) 10 mg PO DAILY PRN PRN Reason: Allergies Miscellaneous Information (Remove Patch) 1 ea TRDERM BEDTIME [facility] Last Admin: 09/17/16 21:02 Dose: Not Given Miscellaneous Information (Remove Patch) 1 ea TRDERM DAILY@2100 [facility] Last Admin: 09/17/16 21:02 Dose: Not Given Omeprazole (Omeprazole) 20 mg PO BIDAC [facility] Last Admin: 09/18/16 05:53 Dose: 20 mg Ondansetron HCl (Zofran Odt) 4 mg PO Q6H PRN PRN Reason: nausea, able to take PO Last Admin: 09/16/16 11:40 Dose: 4 mg Polyethylene Glycol (Miralax) 17 gm PO DAILY PRN PRN Reason: Constipation Prednisolone Acetate (Pred Forte 1% Ophth Susp) 0 ml EYERT QID [facility] Last Admin: 09/18/16 08:52 Dose: 1 drop Sodium Chloride (Dargan Nasal [place]) 0 ml CASSIE BID PRN PRN Reason: Nasal Congestion Vitamin A/Vitamin D (Vitamin A & D) 0 gm TOP TID [facility] Last Admin: 09/18/16 08:52 Dose: 1 applic Warfarin Sodium (Pharmacy To Dose - Warfarin) 1 dose .XX ASDIRECTED [facility] Warfarin Sodium (Coumadin) 0.5 mg PO ONETIME ONE Stop: 09/18/16 14:01 Discontinued Medications Gabapentin (Neurontin) 100 mg PO TID [facility] Last Admin: 09/17/16 13:29 Dose: 100 mg Gabapentin (Neurontin) 100 mg PO ONETIME ONE Stop: 09/17/16 16:54 Last Admin: 09/17/16 17:04 Dose: 100 mg Sodium Chloride (Normal Saline) 1,000 mls @ 50 mls/hr IV ASDIRECTED [facility] Last Infusion: 09/12/16 11:30 Dose: Infused Lorazepam (Ativan) 0.5 mg PO ASDIRECTED PRN PRN Reason: Anxiety Valacyclovir [ Valtrex] 1,000 Mg Non-Formulary Med 1,000 mg PO TID [facility] Stop: 09/10/16 09:01 Last Admin: 09/10/16 09:46 Dose: 1,000 mg Sodium Chloride (Saline Flush) 10 ml FLUSH ASDIRECTED PRN PRN Reason: Keep Vein Open Last Admin: 09/12/16 11:31 Dose: 10 ml Warfarin Sodium (Coumadin) 4 mg PO SuTuThSa@1400 [facility] Warfarin Sodium (Coumadin) 5 mg PO .MO.WE.FR [facility] Warfarin Sodium (Coumadin) 2 mg PO ONETIME ONE Stop: 09/07/16 14:01 Last Admin: 09/07/16 14:11 Dose: 2 mg Warfarin Sodium (Coumadin) 3 mg PO DAILY@1400 [facility] Stop: 09/10/16 14:01 Last Admin: 09/10/16 15:01 Dose: 3 mg Warfarin Sodium (Coumadin) 5 mg PO ONETIME ONE Stop: 09/11/16 14:01 Last Admin: 09/11/16 13:31 Dose: 5 mg Warfarin Sodium (Coumadin) 5 mg PO ONETIME ONE Stop: 09/12/16 14:01 Last Admin: 09/12/16 13:28 Dose: 5 mg Warfarin Sodium (Coumadin) 6 mg PO ONETIME ONE Stop: 09/13/16 14:01 Last Admin: 09/13/16 13:08 Dose: 6 mg Warfarin Sodium (Coumadin) 6 mg PO ONETIME ONE Stop: 09/14/16 14:01 Last Admin: 09/14/16 13:00 Dose: 6 mg Warfarin Sodium (Coumadin) 6 mg PO ONETIME ONE Stop: 09/15/16 15:16 Last Admin: 09/15/16 15:53 Dose: 6 mg Warfarin Sodium (Coumadin) 3 mg PO ONETIME ONE Stop: 09/16/16 14:01 Last Admin: 09/16/16 13:09 Dose: 3 mg Warfarin Sodium (Coumadin) 1 mg PO ONETIME ONE Stop: 09/17/16 14:01 Warfarin Sodium (Coumadin) 0.5 mg PO ONETIME ONE Stop: 09/17/16 14:01 Last Admin: 09/17/16 13:30 Dose: 0.5 mg - Exam Quality Assessment: No: supplemental oxygen General: alert, oriented HEENT: Other (Rash on the right side of forehead and scalp. Swollen right eyelid.) Neck: supple Lungs: Clear to auscultation, Normal respiratory effort Cardiovascular: Regular Rate, Regular Rhythm Extremities: no edema - Problem List & Annotations (1) Generalized weakness SNOMED Code(s): 34724871 Code(s): R53.1 - WEAKNESS Status: Acute Current Visit: Yes - Problem List Review Problem List Initiated/Reviewed/Updated: Yes - Plan Plan:: Generalized weakness, due to multiple reasons, such as recent hospitalization, steroids treatment, herpes zoster, multiple morbidities Encourage ambulation with assistance Continue to work with Occupational and physical therapy Right side herpes zoster ophthalmicus: 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 Treated with Valtrex Continue with the gentamicin eye Drops, Pred Forte eyedrops q.i.d. in the right eye, latanoprost eyedrops nightly as well. History of Coronary artery disease, stable. Continue the aspirin, atenolol, and Zetia at this time. Essential Hypertension Continue on atenolol Hyperlipidemia Continue on Zetia. Chronic anticoagulation with Coumadin. for remote history of bilateral DVT Pharmacy to dose his Coumadin Low TSH Follow as outpatient History Deep venous thrombosis prophylaxis with Coumadin. Continue Coumadin to keep INR therapeutic Recent Delirium during hospitalization now resolved, History of dementia Provide suitable environment Possible urinary tract infection We'll finish levofloxacin antibiotic on 19 September.
[2016-09-18] MEDS: Levofloxacin 500 MG Tab PO SCH (12:11)
[2016-09-18] MEDS: LATANOPROST 0.005% EYERT SCH (21:24)
[2016-09-19] MEDS: Omeprazole 20 MG Cap.CR PO SCH ×2 (05:48→16:31)
[2016-09-19] MEDS: Ferrous Sulfate 325 MG Tab PO SCH (05:48)
[2016-09-19] MEDS: PREDNISOLONE ACETATE 1% EYERT SCH ×4 (09:31→20:12)
[2016-09-19] MEDS: Aspirin 81 MG Tab.EC PO SCH (09:32)
[2016-09-19] MEDS: GENTAMICIN 0.3% EYERT SCH ×4 (09:32→20:11)
[2016-09-19] MEDS: Lidocaine 5% 700 MG Patch TOP SCH ×2 (09:32)
[2016-09-19] MEDS: Gabapentin 100 MG Cap PO SCH ×3 (09:33→20:10)
[2016-09-19] MEDS: Ezetimibe 10 MG Tab PO SCH (09:33)
[2016-09-19] MEDS: Atenolol 50 MG Tab PO SCH (09:33)
[2016-09-19] MEDS: Vitamins A and D Oint 56.7 GM Tube TOP SCH ×3 (09:34→20:13)
[2016-09-19] MEDS: Acetaminophen 325 MG Tab PO SCH ×3 (09:34→20:08)
[2016-09-19] MEDS: Levofloxacin 500 MG Tab PO SCH (13:24)
[2016-09-19] MEDS: Acetaminophen 325 MG Tab PO PRN (16:33)
[2016-09-19] MEDS: LATANOPROST 0.005% EYERT SCH (20:12)
[2016-09-20] MEDS: Ferrous Sulfate 325 MG Tab PO SCH (05:47)
[2016-09-20] MEDS: Omeprazole 20 MG Cap.CR PO SCH ×2 (05:47→17:45)
[2016-09-20] MEDS: Gabapentin 100 MG Cap PO SCH ×3 (09:36→20:31)
[2016-09-20] MEDS: Ezetimibe 10 MG Tab PO SCH (09:36)
[2016-09-20] MEDS: Acetaminophen 325 MG Tab PO SCH ×3 (09:37→20:31)
[2016-09-20] MEDS: Atenolol 50 MG Tab PO SCH (09:38)
[2016-09-20] MEDS: Aspirin 81 MG Tab.EC PO SCH (09:38)
[2016-09-20] MEDS: GENTAMICIN 0.3% EYERT SCH ×4 (09:39→20:29)
[2016-09-20] MEDS: Vitamins A and D Oint 56.7 GM Tube TOP SCH ×3 (09:39→20:30)
[2016-09-20] MEDS: PREDNISOLONE ACETATE 1% EYERT SCH ×4 (09:40→20:33)
[2016-09-20] MEDS: Lidocaine 5% 700 MG Patch TOP SCH ×2 (10:33→10:35)
[2016-09-20] MEDS: Acetaminophen 325 MG Tab PO PRN (17:45)
[2016-09-20] MEDS: Docusate Sodium 100 MG Cap PO PRN (17:45)
[2016-09-20] MEDS: LATANOPROST 0.005% EYERT SCH (20:34)
[2016-09-21] MEDS: Omeprazole 20 MG Cap.CR PO SCH ×2 (05:44→17:02)
[2016-09-21] MEDS: Ferrous Sulfate 325 MG Tab PO SCH (05:44)
[2016-09-21] MEDS: Acetaminophen 325 MG Tab PO PRN (05:47)
[2016-09-21] MEDS: Gabapentin 100 MG Cap PO SCH ×3 (08:33→21:12)
[2016-09-21] MEDS: GENTAMICIN 0.3% EYERT SCH ×4 (08:33→21:13)
[2016-09-21] MEDS: Aspirin 81 MG Tab.EC PO SCH (08:34)
[2016-09-21] MEDS: Acetaminophen 325 MG Tab PO SCH ×3 (08:34→21:12)
[2016-09-21] MEDS: Ezetimibe 10 MG Tab PO SCH (08:34)
[2016-09-21] MEDS: Atenolol 50 MG Tab PO SCH (08:36)
[2016-09-21] MEDS: PREDNISOLONE ACETATE 1% EYERT SCH ×4 (08:36→21:13)
[2016-09-21] MEDS: Vitamins A and D Oint 56.7 GM Tube TOP SCH ×3 (09:13→21:13)
[2016-09-21] MEDS: Lidocaine 5% 700 MG Patch TOP SCH ×2 (09:14)
[2016-09-21] MEDS ORDERED: Warfarin 5 MG Tab PO ONE (14:00)
[2016-09-21] MEDS: LATANOPROST 0.005% EYERT SCH (21:13)
[2016-09-22] MEDS: Ferrous Sulfate 325 MG Tab PO SCH (06:16)
[2016-09-22] MEDS: Omeprazole 20 MG Cap.CR PO SCH ×2 (06:16→18:26)
[2016-09-22] MEDS: Ezetimibe 10 MG Tab PO SCH (09:19)
[2016-09-22] MEDS: Gabapentin 100 MG Cap PO SCH ×4 (09:19→22:33)
[2016-09-22] MEDS: Aspirin 81 MG Tab.EC PO SCH (09:20)
[2016-09-22] MEDS: Acetaminophen 325 MG Tab PO SCH ×3 (09:20→22:32)
[2016-09-22] MEDS: PREDNISOLONE ACETATE 1% EYERT SCH ×4 (09:21→22:30)
[2016-09-22] MEDS: Lidocaine 5% 700 MG Patch TOP SCH ×2 (09:22)
[2016-09-22] MEDS: GENTAMICIN 0.3% EYERT SCH ×4 (09:22→22:30)
[2016-09-22] MEDS: Vitamins A and D Oint 56.7 GM Tube TOP SCH ×3 (09:24→22:31)
[2016-09-22] MEDS: Atenolol 50 MG Tab PO SCH (09:28)
[2016-09-22] MEDS ORDERED: Warfarin 5 MG Tab PO ONE (14:00)
[2016-09-22] MEDS: Lidocaine 2% Jelly 5 ML Tube TOP SCH (16:04)
[2016-09-22] MEDS: LATANOPROST 0.005% EYERT SCH (22:31)
[2016-09-23] MEDS: Ferrous Sulfate 325 MG Tab PO SCH (06:11)
[2016-09-23] MEDS: Omeprazole 20 MG Cap.CR PO SCH ×2 (06:11→17:10)
[2016-09-23] MEDS: GENTAMICIN 0.3% EYERT SCH ×4 (09:22→20:40)
[2016-09-23] MEDS: Ezetimibe 10 MG Tab PO SCH (09:23)
[2016-09-23] MEDS: Aspirin 81 MG Tab.EC PO SCH (09:23)
[2016-09-23] MEDS: Atenolol 50 MG Tab PO SCH (09:23)
[2016-09-23] MEDS: Acetaminophen 325 MG Tab PO SCH ×3 (09:24→20:43)
[2016-09-23] MEDS: Gabapentin 100 MG Cap PO SCH ×4 (09:25→20:43)
[2016-09-23] MEDS: Vitamins A and D Oint 56.7 GM Tube TOP SCH ×3 (09:25→20:37)
[2016-09-23] MEDS: Lidocaine 2% Jelly 5 ML Tube TOP SCH (09:26)
[2016-09-23] MEDS: PREDNISOLONE ACETATE 1% EYERT SCH ×4 (09:27→20:35)
[2016-09-23] MEDS: Lidocaine 5% 700 MG Patch TOP SCH ×2 (09:27)
[2016-09-23] MEDS ORDERED: Warfarin 2 MG Tab PO ONE (14:00)
[2016-09-23] MEDS: LATANOPROST 0.005% EYERT SCH (20:42)
[2016-09-24] MEDS: Omeprazole 20 MG Cap.CR PO SCH ×2 (05:54→16:45)
[2016-09-24] MEDS: Ferrous Sulfate 325 MG Tab PO SCH (05:54)
[2016-09-24] MEDS: Acetaminophen 325 MG Tab PO PRN (05:59)
[2016-09-24] MEDS: GENTAMICIN 0.3% EYERT SCH ×4 (08:48→20:30)
[2016-09-24] MEDS: Aspirin 81 MG Tab.EC PO SCH (08:49)
[2016-09-24] MEDS: Acetaminophen 325 MG Tab PO SCH ×3 (08:49→20:29)
[2016-09-24] MEDS: Gabapentin 100 MG Cap PO SCH ×4 (08:49→20:28)
[2016-09-24] MEDS: Ezetimibe 10 MG Tab PO SCH (08:50)
[2016-09-24] MEDS: Atenolol 50 MG Tab PO SCH (08:51)
[2016-09-24] MEDS: Lidocaine 2% Jelly 5 ML Tube TOP SCH (08:52)
[2016-09-24] MEDS: Vitamins A and D Oint 56.7 GM Tube TOP SCH ×3 (08:52→20:31)
[2016-09-24] MEDS: PREDNISOLONE ACETATE 1% EYERT SCH ×4 (08:53→20:31)
[2016-09-24] MEDS: Lidocaine 5% 700 MG Patch TOP SCH ×2 (08:53)
--- NOTE | 2016-09-24 12:35 | PN ---
DATE: 09/24/2016 SUBJECTIVE: Mr. Juan A Jean is an 86-year-old male with medical history significant for coronary artery disease, coronary artery bypass graft, hypertension, hyperlipidemia, abdominal aortic aneurysm, dementia, chronic anticoagulation for history of DVT in the past recently diagnosed with zoster infection involving the right eye and has completed his acyclovir treatment and then transitioned to Valtrex at [facility]. Admitted to the swing bed for continued physical therapy and occupational therapy. For the last 24 hours, the patient continues to have pain to the right eye region 3 to 4/10 in intensity, improved with Neurontin. Denies any chest pain. No shortness of breath. No abdominal pain. No nausea. No vomiting. No diarrhea. REVIEW OF SYSTEMS: Cardiovascular, respiratory, gastrointestinal, neurology, and constitutional were all evaluated. PHYSICAL EXAMINATION: Vital Signs: Temperature of 97.9, pulse of 70, respiratory rate of 20, blood pressure of 100/61, saturating at 98% on room air. General Appearance: The patient is well oriented to time, place, and person. Follows commands spontaneously. Cardiovascular System: S1, S2 heard with normal intensity. No gallops. Respiratory: Clear to auscultation bilaterally. No wheeze. No crepitations. Abdomen: Soft. Bowel sounds positive. Nontender. No rigidity. Extremities: No edema in bilateral lower extremities. Head and Neck: The patient is noted to have a scab on the right eye and light swelling in the right eye noted. No visual defects noted. MEDICATIONS: Reviewed. Continue with: 1. Tylenol 650 every 4 hours as needed for pain. 2. Aspirin 81 mg daily. 3. Atenolol 50 mg daily. 4. Zetia 10 mg daily. 5. Ferrous sulfate 325 mg daily. 6. Flonase as needed. 7. Neurontin 200 mg 3 times a day and 200 mg additional dose at bedtime. 8. Robitussin 100 mg every 4 hours as needed for cough. 9. Lidoderm transdermal patch and cream. 10.Omeprazole 20 mg twice a day. 11.Prednisone acetate eyedrops q.i.d. 12.Coumadin pharmacy to dose. LABORATORY DATA: Reviewed. INR 2.1. ASSESSMENT: 1. Zoster infection to the right eye improving. 2. Hypertension. 3. Hyperlipidemia. 4. Generalized weakness. 5. Coronary artery disease. 6. Chronic anticoagulation. PLAN: 1. Zoster infection. The patient received acyclovir and Valtrex and has completed his course of treatment. He is currently on Neurontin. He is getting an additional dose of Neurontin at night. We will continue the same. We will continue with pain medications as needed. 2. Hypertension. The patient's blood pressure seems to be in acceptable range. Try to avoid any hypotensive episodes. 3. Coronary artery disease. The patient denies any ongoing chest pain. Continue with aspirin, statin, and beta-marita with atenolol. 4. Chronic anticoagulation. The patient had history of DVT in the past. He is currently on Coumadin pharmacy to dose the Coumadin for therapeutic INR of 2-3. 5. Continue with physical therapy and occupational therapy while in the swing bed. [facility] /[id number]
[2016-09-24] MEDS ORDERED: Warfarin 5 MG Tab PO ONE (14:00)
[2016-09-24] MEDS: LATANOPROST 0.005% EYERT SCH (20:31)
[2016-09-25] MEDS: Ferrous Sulfate 325 MG Tab PO SCH (06:08)
[2016-09-25] MEDS: Omeprazole 20 MG Cap.CR PO SCH ×2 (06:08→16:58)
[2016-09-25] MEDS: Lidocaine 5% 700 MG Patch TOP SCH ×2 (09:05)
[2016-09-25] MEDS: PREDNISOLONE ACETATE 1% EYERT SCH ×4 (09:06→21:33)
[2016-09-25] MEDS: Ezetimibe 10 MG Tab PO SCH (09:07)
[2016-09-25] MEDS: Acetaminophen 325 MG Tab PO SCH ×3 (09:07→21:29)
[2016-09-25] MEDS: Gabapentin 100 MG Cap PO SCH ×4 (09:07→21:29)
[2016-09-25] MEDS: Aspirin 81 MG Tab.EC PO SCH (09:08)
[2016-09-25] MEDS: GENTAMICIN 0.3% EYERT SCH ×4 (09:10→21:31)
[2016-09-25] MEDS: Atenolol 50 MG Tab PO SCH (09:11)
[2016-09-25] MEDS: Vitamins A and D Oint 56.7 GM Tube TOP SCH ×3 (09:13→21:29)
[2016-09-25] MEDS: Lidocaine 2% Jelly 5 ML Tube TOP SCH (09:14)
[2016-09-25] MEDS ORDERED: Warfarin 2 MG Tab PO ONE (14:00)
[2016-09-25] MEDS: LATANOPROST 0.005% EYERT SCH (21:35)
[2016-09-26] MEDS: Omeprazole 20 MG Cap.CR PO SCH ×2 (06:09→16:53)
[2016-09-26] MEDS: Ferrous Sulfate 325 MG Tab PO SCH (06:09)
[2016-09-26] MEDS: Aspirin 81 MG Tab.EC PO SCH (09:43)
[2016-09-26] MEDS: Atenolol 50 MG Tab PO SCH (09:44)
[2016-09-26] MEDS: Gabapentin 100 MG Cap PO SCH ×2 (09:44→21:14)
[2016-09-26] MEDS: Ezetimibe 10 MG Tab PO SCH (09:45)
[2016-09-26] MEDS: Acetaminophen 325 MG Tab PO SCH ×3 (09:45→21:15)
[2016-09-26] MEDS: GENTAMICIN 0.3% EYERT SCH ×4 (09:50→21:13)
[2016-09-26] MEDS: Vitamins A and D Oint 56.7 GM Tube TOP SCH ×3 (09:51→21:14)
[2016-09-26] MEDS: PREDNISOLONE ACETATE 1% EYERT SCH ×4 (09:51→21:14)
[2016-09-26] MEDS: Lidocaine 5% 700 MG Patch TOP SCH ×2 (09:55)
[2016-09-26] MEDS: Lidocaine 2% Jelly 5 ML Tube TOP SCH (10:07)
[2016-09-26] MEDS: Docusate Sodium 100 MG Cap PO PRN (13:11)
[2016-09-26] MEDS ORDERED: Warfarin 2 MG Tab PO ONE (14:00)
[2016-09-26] MEDS: LATANOPROST 0.005% EYERT SCH (21:14)
[2016-09-27] MEDS: Omeprazole 20 MG Cap.CR PO SCH (05:22)
[2016-09-27] MEDS: Ferrous Sulfate 325 MG Tab PO SCH (05:22)
[2016-09-27] MEDS: Lidocaine 5% 700 MG Patch TOP SCH ×2 (09:19→09:20)
[2016-09-27] MEDS: GENTAMICIN 0.3% EYERT SCH (09:20)
[2016-09-27] MEDS: Vitamins A and D Oint 56.7 GM Tube TOP SCH (09:21)
[2016-09-27] MEDS: Lidocaine 2% Jelly 5 ML Tube TOP SCH (09:21)
[2016-09-27] MEDS: Ezetimibe 10 MG Tab PO SCH (09:22)
[2016-09-27] MEDS: Acetaminophen 325 MG Tab PO SCH (09:23)
[2016-09-27] MEDS: Aspirin 81 MG Tab.EC PO SCH (09:25)
[2016-09-27] MEDS: Atenolol 50 MG Tab PO SCH (09:25)
[2016-09-27] MEDS: Gabapentin 100 MG Cap PO SCH (09:26)
[2016-09-27 09:27] VITALS: BP 133/82
[2016-09-27] MEDS: PREDNISOLONE ACETATE 1% EYERT SCH (09:27)
[2016-09-27] MEDS ORDERED: Warfarin 2 MG Tab PO SCH (14:00)
--- NOTE | 2016-09-28 07:08 | DISCH ---
ADMITTING DIAGNOSES: 1. Shingles affecting the right eye. 2. Increased weakness and tiredness requiring physical therapy and occupational therapy while in the swing bed secondary to generalized weakness. DISCHARGE DIAGNOSES: 1. Herpes zoster ophthalmicus on the right side, improved. 2. Generalized weakness, improved. 3. Hypertension. HISTORY OF PRESENTING ILLNESS: Mr. Wale Jean is an 86-year-old male with a medical history significant for coronary artery disease, coronary artery bypass graft, hypertension, hyperlipidemia, abdominal aortic aneurysm, dementia, chronic anticoagulation for remote history of DVT in the past initially admitted to acute care setting with complaints of right eye pain and was noted to have zoster infection. The patient was treated with IV steroids and also given acyclovir and Valtrex and has completed his course of acyclovir treatment. The patient continued to have pain to the right eye and also had increased weakness and tiredness, requiring admission to the swing bed. While in the swing bed, the patient continued with physical therapy and occupational therapy, continued to have pain, so we added Neurontin to his drug regimen for post herpetic neuralgia. Initially, he was on Neurontin 200 mg 3 times a day along with 200 mg at bedtime. This was making him more sedated, so we had to titrate down the Neurontin to 100 mg twice a day. He responded well to the treatment. He continues to have pain mild to the right eye. The patient will be advised to follow with an mac developer as an outpatient in the next 1 week and to follow with his primary care physician in next 1 week. The patient also required front- wheeled walker to go home to avoid any falls. He will be given a prescription for the front wheel walker. He is discharged home in stable condition. DISCHARGE MEDICATIONS: Include: 1. Tylenol 650 every 4 hours as needed for pain, then 25 mg 3 times a day. 2. Aspirin 81 mg daily. 3. Atenolol 50 mg daily. 4. Zetia 10 mg daily. 5. Ferrous sulfate 325 mg daily. 6. Flonase 2 spray in nostril each day as needed for rhinitis. 7. Neurontin 100 mg twice a day. 8. Gentamicin 1 drop to eye, right 4 times daily. 9. Xalatan 2.5 mL, right eye at bedtime. 10.Lidocaine jelly topical as needed for pain. 11.Loratadine 10 mg daily. 12.Magnesium hydroxide (Maalox) suspension 15 mL oral 4 times daily as needed for indigestion. 13.Omeprazole 20 mg twice a day. 14.Coumadin 4 mg on Sunday, , Sunday, and Sunday and 5 mg on Sunday, Sunday, and Sunday. 15.Prednisone 1 drop in right eye 4 times daily. PHYSICAL EXAMINATION: Vital Signs: On the day of discharge; temperature of 99.4, pulse of 84, blood pressure 133/82, respiratory rate of 20, saturating at 97% on room air. General Appearance: The patient is well oriented to time, place, and person. Follows commands spontaneously. Cardiovascular System: S1 and S2 heard with normal intensity. No gallops. Respiratory: Clear to auscultation bilaterally. No wheeze. No crepitations. Abdomen: Soft. Bowel sounds positive. Nontender. No rigidity. Extremities: No edema in bilateral lower extremities. Head and Neck: Mild swelling noted around the right eye, much improved from the time of admission. CONDITION ON ADMISSION: Poor. CONDITION ON DISCHARGE: Stable. DISPOSITION: Discharged to home. ACTIVITY: As tolerated. The patient will need a front wheel walker to avoid any falls. DIET: Cardiac healthy diet. 1. Follow with primary care physician next 1 week of time. 2. Follow up with optometry next 1 week of time. Spent over 35 minutes of time in evaluating and treating this patient and getting discharge orders. [facility] /[id number]
== END 2016-09-27 13:45 | DRG 948 ==
LOC: DL.MS 13:44 → UNDOADMIN 13:44 → DL.MS 15:40
PROVIDERS: ADMIT Family Medicine; ATTEND Family Medicine
DX: R53.1 Weakness (principal); B02.30 Zoster ocular disease, unspecified; N39.0 Urinary tract infection, site not specified; I25.810 Atherosclerosis of coronary artery bypass graft(s) without angina pectoris; I10 Essential (primary) hypertension; E78.5 Hyperlipidemia, unspecified; Z86.718 Personal history of other venous thrombosis and embolism; Z79.01 Long term (current) use of anticoagulants; F03.90 Unspecified dementia, unspecified severity, without behavioral disturbance, psychotic disturbance, mood disturbance, and anxiety; Z95.1 Presence of aortocoronary bypass graft; Z79.82 Long term (current) use of aspirin; M19.90 Unspecified osteoarthritis, unspecified site; D64.9 Anemia, unspecified; Z85.46 Personal history of malignant neoplasm of prostate; R94.6 Abnormal results of thyroid function studies
CPT/HCPCS: 36415; 71010; 80048; 80053; 81001; 84295; 85004; 85025; 85610; 87040; 97110-GO; 97110-GP; 97116-GP; 97162-GP; 97165-GO; 97530-GO; 97532-GO; 97535-GO; A9270-GY; J7030; J7050

== ENCOUNTER 2017-07-13 16:06 | Inpatient (IN) | payer MEDICARE, BC ==
[2017-07-13] MEDS ORDERED: Magnesium Hydroxide 400 MG/5 ML Susp 30 ML Cup PO PRN (18:31)
[2017-07-13] MEDS ORDERED: Acetaminophen 325 MG Tab PO PRN (18:31)
[2017-07-13] MEDS ORDERED: Ondansetron 4 MG Tab.DIS PO PRN (18:31)
[2017-07-13] MEDS ORDERED: Docusate Sodium 100 MG Cap PO PRN (18:31)
[2017-07-13] MEDS ORDERED: Morphine 2 MG/ML Syringe IVPUSH PRN (18:31)
[2017-07-13] MEDS ORDERED: Fluticasone Propionate Nasal Spray 16 GM Bottle NASBOTH PRN (18:37)
[2017-07-13] MEDS ORDERED: Loratadine 10 MG Tab PO PRN (18:37)
[2017-07-13] MEDS ORDERED: 50% Dextrose in Water 50 ML Syringe IVPUSH PRN (18:43)
[2017-07-13] MEDS ORDERED: Sodium Chloride 0.9% 500 ML IV SCH (18:45)
[2017-07-13] MEDS ORDERED: Barium Sulfate w/v 2.1% Oral Susp 450 ML Bottle PO ONE ×2 (18:51→20:30)
[2017-07-13] MEDS: Piperacillin/Tazobactam 3.375 GM in Sodium Chloride 0.9% 100 ML IV SCH (19:27)
[2017-07-13] MEDS: Insulin Aspart 100 Units/ML 3 ML Pen SUBCUT SCH (21:23)
[2017-07-13] MEDS: Acetaminophen 325 MG Tab PO SCH (21:45)
[2017-07-13] MEDS: Gabapentin 100 MG Cap PO SCH (21:45)
[2017-07-13] MEDS: Omeprazole 20 MG Cap.CR PO SCH (21:46)
[2017-07-13] MEDS: Sodium Chloride 0.9% 1,000 ML IV SCH (22:54)
[2017-07-14] MEDS: Piperacillin/Tazobactam 3.375 GM in Sodium Chloride 0.9% 100 ML IV SCH ×4 (01:02→18:30)
--- NOTE | 2017-07-14 01:15 | HP ---
CHIEF COMPLAINT: Increasing weakness, tiredness, and having a fall at home. HISTORY OF PRESENTING ILLNESS: Mr. Wale Velazco is an 87-year-old male with medical history significant for hypertension, hyperlipidemia, status post cholecystectomy, history of abdominal aortic aneurysm repair, coronary artery disease, status post coronary artery bypass graft, Paget's disease of the bone, prostate cancer, iron deficiency anemia, presents to the clinic with complaints of increasing weakness, tiredness, and having a fall and was noted to have temperature, noted to have leukocytosis requiring admission to the hospital. At this time, the patient claims that he has been feeling sick for the last 2 days. He is a resident of assisted living facility. Earlier today, the patient had a temperature of 101 and presented to the clinic. He had a fall yesterday after tripping over his walker. He denies any loss of consciousness at that time. He was able to ambulate well after the fall. He denies any chest pain. No shortness of breath. No abdominal pain. No nausea. No vomiting, but complains of having fevers and chills. No diarrhea. The patient denied any history of chest pains on exertion, but has mild dyspnea on exertion. No history of orthopnea or paroxysmal nocturnal dyspnea. The patient denied any history of hematemesis, hematochezia, or melenic stools. Normal bowel and bladder habits otherwise. REVIEW OF SYSTEMS: A complete review of system including skin, ear, nose, and throat, cardiovascular system, respiratory system, gastrointestinal system, genitourinary system, hematology, oncology, neurology, allergy, immunology, constitutional were all evaluated and were negative except for the above-said notes. PAST MEDICAL HISTORY: Significant for: 1. Hypertension. 2. Hyperlipidemia. 3. Coronary artery disease, status post coronary artery bypass graft. 4. Abdominal aortic aneurysm repair. 5. Prostate cancer. 6. Iron deficiency anemia. 7. Degenerative joint disease. 8. Gastritis. 9. Chronic kidney disease. SURGICAL HISTORY: Significant for: 1. Tonsillectomy and adenoidectomy. 2. Cataract removal. 3. Coronary artery bypass graft. 4. Abdominal aortic aneurysm repair. 5. Abdominal surgery. 6. Status post cholecystectomy. FAMILY HISTORY: Significant for arthritis in his sister. Hypertension in his daughter. SOCIAL HISTORY: He had history of smoking in the past, but quit many years back in 1985. No history of alcohol intake. ALLERGIES: Allergic history: The patient noted to have allergies to: 1. Pravastatin. 2. Simvastatin. 3. Calcium containing components. 4. Fosamax. MEDICATIONS: Home medications include: 1. Coumadin 2 mg daily. 2. Senokot 8.6 mg twice a day. 3. Omeprazole 20 mg twice a day. 4. Claritin 10 mg daily. 5. Neurontin 100 mg twice a day. 6. Atenolol 50 mg daily. 7. Aspirin 81 mg daily. 8. Tylenol 325 mg 3 times a day, and 650 mg every 4 hours as needed for pain. 9. Zetia 10 mg daily. 10.Flonase 2 sprays nasal daily as needed. 11.Claritin 10 mg daily as needed. 12.Maalox 15 mL oral 4 times a day as needed. 13.Eye ointment to right eye daily. 14.Multivitamin 1 tablet daily. PHYSICAL EXAMINATION: Vital Signs: Temperature of 98, pulse of 124, blood pressure of 88/65, respiratory rate of 18, saturating 96% on room air. General Appearance: The patient is awake and alert, and follows commands spontaneously. Cardiovascular System: S1, S2 heard with normal intensity. No gallops. Respiratory System: Clear to auscultation bilaterally. No wheeze. No crepitations. Abdomen: Soft. Bowel sounds positive. Mild tenderness to the left lower quadrant. No rigidity. No guarding. No rebound tenderness. Extremities: No edema in bilateral lower extremities. Neurology: No gross focal neurological deficits. LABORATORY DATA: Reviewed. Sodium 136, potassium 4.7, chloride 100, bicarb 20.1, glucose of 171, creatinine 1.7. Alkaline phosphorus 802. Total bilirubin 5.8. AST 63, ALT 62, total protein 7.4. WBC 18.7, hemoglobin 14.2, hematocrit 44.2, platelet count 340. ASSESSMENT: 1. Fever of unknown origin. 2. Elevated liver function test. Etiology not clear at this time. 3. Acute on chronic renal failure. 4. Metabolic acidosis. 5. Leukocytosis. 6. Hypertension. Currently, hypotensive with tachycardia. 7. Hyperlipidemia. 8. Coronary artery disease, status post coronary artery bypass graft. 9. Abdominal aortic aneurysm, status post repair. 10.Mild dementia. PLAN: 1. Fever. The patient is noted to have fever. He is noted to be tachycardic, leukocytosis, suspecting sepsis at this time. Exact etiology for infection is not clear. We will obtain a CT scan of the abdomen and pelvis as he is noted to have elevated liver function test and also tenderness on exam. We will obtain x-ray of the chest and urinalysis. We will empirically start him on IV Zosyn, and we will closely follow the culture reports and titrate the antibiotics. We will obtain blood cultures, and urine culture. 2. Elevated liver function test. The patient had a cholecystectomy in the past. Unsure if the patient has any biliary sludge resulting in elevated total bilirubin and also elevated alkaline phosphatase. We will follow the CT scan of the abdomen at this time. Could not use IV contrast secondary to acute renal failure. Empirically, start him on IV antibiotic, Zosyn. 3. Acute on chronic renal failure. The patient noted to have elevated creatinine up to 1.7 and BUN up to 25. Keep him hydrated with IV fluids. Avoid nephrotoxic agents. Dose adjust medications for renal function. Recheck a basic metabolic panel in a.m. 4. Sepsis. The patient is noted to have tachycardia and leukocytosis with possible ongoing infection. Obtain cultures and start him on IV antibiotics and follow his serial lactic acid levels. 5. Hypertension. The patient is currently hypotensive. Hold his antihypertensive medication and his atenolol. We will resume the antihypertensive medications once he is more stable. 6. Coronary artery disease. The patient denies any ongoing chest pains. We will follow serial cardiac enzymes. 7. Deep vein thrombosis prophylaxis. The patient is currently on Coumadin. The patient had history of pulmonary embolism in the past. We will have pharmacy to dose the Coumadin for therapeutic INR of 2 to 3. We will get an INR today. 8. Code status. The patient wants to be full code. 9. Discussed with Dr. Hope, transferring physician regarding the plan of care. Reviewed the labs and medications. Reviewed the old chart. Discussed with family members at bedside. [facility] /[id number]
[2017-07-14] MEDS ORDERED: Sodium Chloride 0.9% 500 ML IV SCH (03:45)
[2017-07-14] MEDS: Sodium Chloride 0.9% 1,000 ML IV SCH ×2 (06:26→18:34)
[2017-07-14] MEDS: Multivitamins, Therapeutic with Minerals Tab PO SCH (09:47)
[2017-07-14] MEDS: Aspirin 81 MG Tab.EC PO SCH (09:48)
[2017-07-14] MEDS: Insulin Aspart 100 Units/ML 3 ML Pen SUBCUT SCH ×4 (09:48→20:58)
[2017-07-14] MEDS: Omeprazole 20 MG Cap.CR PO SCH ×2 (09:48→20:54)
[2017-07-14] MEDS: Gabapentin 100 MG Cap PO SCH ×2 (09:48→20:55)
[2017-07-14] MEDS: Carboxymethylcellulose Sodium 1% Ophth Gel 0.4 ML UD EYERT SCH (09:50)
[2017-07-14] MEDS: Acetaminophen 325 MG Tab PO SCH ×3 (10:45→20:54)
[2017-07-14] MEDS ORDERED: Metoprolol Tartrate 5 MG/5 ML SDV IVPUSH ONE ×3 (12:26→23:41)
[2017-07-14] MEDS ORDERED: Atenolol 25 MG Tab PO SCH (12:30)
[2017-07-14] MEDS: Atenolol 25 MG Tab PO SCH (13:16)
--- NOTE | 2017-07-14 13:22 | PN ---
DATE: 07/14/2017 SUBJECTIVE: Mr. Juan A Echevarria is an 87-year-old male with medical history significant for hypertension, hyperlipidemia, status post cholecystectomy, history of abdominal aortic aneurysm repair, coronary artery disease, status post coronary artery bypass graft. The patient has disease of the bone, admitted with complaints of increasing weakness, tiredness, and having a fall at home. For the last 24 hours, the patient continued to have tachycardia, continued to have low blood pressure requiring IV fluid bolus last night. He denies any chest pain. No shortness of breath. Complains of back pain which has been chronic in nature. No complaints of abdominal pain. No nausea. No vomiting. No diarrhea. REVIEW OF SYSTEMS: Cardiovascular, respiratory, gastrointestinal, neurology, constitutional were all evaluated. PHYSICAL EXAMINATION: Vital Signs: Temperature of 98.6, pulse of 128, blood pressure of 104/78, respiratory rate of 20, saturating at 94%. General Appearance: The patient is awake and alert. Follows commands spontaneously. Cardiovascular System: S1, S2 heard with normal intensity. No gallops. Respiratory System: Clear to auscultation bilaterally. No wheeze. No crepitations. Abdomen: Soft. Bowel sounds positive. Nontender. No rigidity. No rebound tenderness. Extremities: No edema of bilateral lower extremities. Neurology: No gross focal neurological deficit. MEDICATIONS: Continue with, 1. Tylenol 325 mg every 4 hours as needed for pain. 2. Aspirin 81 mg daily. 3. Docusate sodium 100 mg twice a day. 4. Neurontin 100 mg twice a day. 5. NovoLog supplemental scale. 6. Milk of magnesia 30 mL. 7. Morphine 2 mg IV q.2 hours as needed for pain. 8. Coumadin, pharmacy to dose. 9. Omeprazole 20 mg twice a day. 10.Senokot 1 tablet as needed. 11.Coumadin, pharmacy to dose. LABORATORY DATA: Reviewed. WBC 14.8, hemoglobin 12.8, hematocrit 38.7, platelet count 261, INR 4.7. Sodium 130, potassium 3.7, chloride 99, bicarb 21, BUN 33, creatinine 1.2, glucose 90. Lactic acid 2. Urinalysis negative for leukocyte esterase, negative for nitrites, large bilirubin. ASSESSMENT: 1. Fever of unknown origin. 2. Elevated liver function test. 3. Acute on chronic renal failure. 4. Metabolic acidosis. 5. Leukocytosis. 6. Hypertension. 7. Hyperlipidemia. 8. Coronary artery disease, status post coronary artery bypass graft. 9. Abdominal aortic aneurysm, status post repair. PLAN: 1. Fever. The patient remains afebrile at this time. He is empirically started on Zosyn. He is noted to have elevated liver function test, we thought of possible cholangitis, but the patient had a CT scan of the abdomen and pelvis, which does not show any evidence of dilated ducts, but the patient noted to have elevated LFTs, improved from yesterday. Continue with IV hydration. Continue with IV antibiotics. For now await blood cultures, urine cultures, and titrate the antibiotics. 2. Possible sepsis. The patient was noted to have tachycardia, leukocytosis with fever suggestive of possible sepsis. His lactic acid is within normal limits. Continue with broad-spectrum antibiotics. 3. Hypertension. The patient remained hypotensive last night, he received IV fluid boluses, we will cut down IV fluids at this time, and we will closely follow. Avoid any antihypertensive medications. 4. Metabolic acidosis. This is mainly from acute on chronic renal failure which seems to be improving. 5. Acute on chronic renal failure. His creatinine is improved to 1.2. Recheck a basic metabolic panel in a.m. 6. Hyponatremia, sodium of 130. Continue with IV normal saline. Recheck a BMP in a.m. 7. Elevated LFTs, exact etiology is not clear. A CT scan of the abdomen and pelvis did not show any evidence of pancreatitis, but there was evidence of duodenitis. There is no evidence of dilated ducts. His LFTs seems to be trending down from admission, we will recheck LFT in a.m. If he continues to have elevated LFTs, then one might consider getting an MRCP in a.m. We will closely follow. 8. Leukocytosis, this seems to be trending down after I started him on Zosyn, continue the same. 9. Discussed with the family members at bedside. [facility] /[id number]
[2017-07-14] MEDS ORDERED: [UNRECOGNIZED DRUG - REMARK] PO ONE (14:00)
[2017-07-14] MEDS: Digoxin 500 MCG/2 ML Amp IVPUSH SCH (19:24)
[2017-07-15] MEDS ORDERED: Furosemide 40 MG/4 ML VIAL IVPUSH ONE (00:57)
[2017-07-15] MEDS: Digoxin 500 MCG/2 ML Amp IVPUSH SCH (01:02)
[2017-07-15] MEDS: Piperacillin/Tazobactam 3.375 GM in Sodium Chloride 0.9% 100 ML IV SCH ×3 (01:04→15:05)
[2017-07-15] MEDS ORDERED: Haloperidol Lactate 5 MG/ML SDV IM ONE (04:21)
[2017-07-15] MEDS: Insulin Aspart 100 Units/ML 3 ML Pen SUBCUT SCH ×2 (08:32→15:05)
[2017-07-15] MEDS: Multivitamins, Therapeutic with Minerals Tab PO SCH (09:50)
[2017-07-15] MEDS: Gabapentin 100 MG Cap PO SCH (09:50)
[2017-07-15] MEDS: Omeprazole 20 MG Cap.CR PO SCH (09:51)
[2017-07-15] MEDS: Atenolol 25 MG Tab PO SCH (09:51)
[2017-07-15] MEDS: Aspirin 81 MG Tab.EC PO SCH (09:51)
[2017-07-15] MEDS: Carboxymethylcellulose Sodium 1% Ophth Gel 0.4 ML UD EYERT SCH (09:52)
[2017-07-15] MEDS: Acetaminophen 325 MG Tab PO SCH ×2 (09:59→15:06)
--- NOTE | 2017-07-15 12:04 | DISCH ---
The patient is being discharged to [facility] for higher level of care for atrial fibrillation with rapid ventricular response and possible cardiology evaluation and GI evaluation for elevated LFTs. ADMITTING DIAGNOSES: 1. Fever of unknown origin. 2. Elevated liver function test. 3. [id number] renal failure. 4. Possible sepsis. DISCHARGE DIAGNOSES: 1. Possible pneumonia. 2. Possible cholangitis. 3. Sepsis. 4. Atrial fibrillation with rapid ventricular response. 5. Hypertension. 6. Metabolic acidosis. 7. [id number] renal failure, improved. 8. Abdominal aortic aneurysm. HISTORY OF PRESENT ILLNESS: Mr. Juan A Echevarria is an 87-year-old male with medical history significant for hypertension, hyperlipidemia, status post cholecystectomy, history of abdominal aortic aneurysm, coronary artery disease, status post coronary artery bypass graft, was admitted to the hospital with complaints of increasing weakness, tiredness, and noted to have a fall at his home. Further workup in the clinic showed evidence of low blood pressure, fevers, and noted to have possible sepsis. He was admitted to the hospital, started him on broad-spectrum antibiotic with Zosyn. The patient had a CT scan of the abdomen and pelvis which did not show any evidence of dilated ducts, but was noted to have duodenitis, nonspecific finding. The patient's hospital course was further complicated with AFib with RVR, requiring IV metoprolol x3 doses, and also IV digoxin which did not improve his rapid heart rate, so the patient is being transferred to higher level of care to [facility] in [place] for further evaluation and treatment by possible Cardiology consultation and GI consultation for elevated LFTs. We will continue with IV Zosyn at this time. Discussed with the patient and family members regarding transfer to [facility] which they understand and would like to be transferred there. He would need ambulance transfer as he will require cardiac IV medication. DISCHARGE MEDICATIONS: Include: 1. Tylenol 650 every 4 hours as needed for pain. 2. Aspirin 81 mg daily. 3. Atenolol 50 mg daily. 4. Zetia 10 mg daily. 5. Flonase 2 nasal sprays daily. 6. Neurontin 100 mg twice a day. 7. Claritin 10 mg daily. 8. Maalox 15 mL 4 times a day as needed. 9. Multivitamin 1 tablet daily. 10.Omeprazole 20 mg twice a day. 11.Zosyn 3.375 g every 6 hours. 12.Coumadin 4 mg on all other days except for 2 mg on Sunday and . PHYSICAL EXAMINATION: On the day of discharge: Vital Signs: Temperature of 98.4, pulse rate of 126, blood pressure 106/76, respiratory rate of 20, and saturating at 94% on 1 L of oxygen. General Appearance: The patient is awake and alert. Follows commands spontaneously. Cardiovascular System: S1 and S2 heard with normal intensity. Regular heart rate. Respiratory System: Clear to auscultation bilaterally except for mild crepitations at the bases. No wheeze. Abdomen: Soft. Bowel sounds positive. Nontender. No rigidity. Extremities: No edema in the bilateral lower extremities. Neurology: No gross focal neurological deficits. CONDITION ON ADMISSION: Poor. CONDITION ON DISCHARGE: Stable. DISPOSITION: Discharged to [facility] for higher level of care for possible Cardiology consultation. ACTIVITY: As tolerated with fall precaution. DIET: Cardiac healthy diet. FOLLOWUP: Follow up with primary care physician in [address] [facility]. TIME SPENT: Spent over 35 minutes of time in evaluating and treating this patient and making discharge planning. [facility] /[id number]
[2017-07-15 12:14] VITALS: BP 116/83
[2017-07-15] MEDS ORDERED: [UNRECOGNIZED DRUG - REMARK] PO ONE (14:00)
--- NOTE | 2017-07-17 07:41 | EKG ---
07/14/2017- CARL DÍAZ HOMER - FINDINGS: Twelve-lead EKG shows atrial flutter with rapid ventricular response. Nonspecific ST-T wave changes noted on lead V2, V3. No significant ST elevation or ST depression noted on this 12-lead EKG. [facility] /[id number]
== END 2017-07-15 12:08 | DRG 871 ==
LOC: UNDOADMOB 16:06 → DL.MS 16:06 → OBSVTOIN 18:31 → INTOOBSV 18:31 → DL.MS 07-15 03:40
PROVIDERS: ADMIT Internal Medicine; ATTEND Internal Medicine
DX: A41.9 Sepsis, unspecified organism (principal); J18.9 Pneumonia, unspecified organism; N17.9 Acute kidney failure, unspecified; E87.2 Acidosis; E87.1 Hypo-osmolality and hyponatremia; K83.0 Cholangitis; R79.89 Other specified abnormal findings of blood chemistry; I48.91 Unspecified atrial fibrillation; N18.9 Chronic kidney disease, unspecified; I12.9 Hypertensive chronic kidney disease with stage 1 through stage 4 chronic kidney disease, or unspecified chronic kidney disease; E78.5 Hyperlipidemia, unspecified; I25.10 Atherosclerotic heart disease of native coronary artery without angina pectoris; F03.90 Unspecified dementia, unspecified severity, without behavioral disturbance, psychotic disturbance, mood disturbance, and anxiety; M88.9 Osteitis deformans of unspecified bone; D50.9 Iron deficiency anemia, unspecified; K29.70 Gastritis, unspecified, without bleeding; G89.29 Other chronic pain; M54.9 Dorsalgia, unspecified; K29.80 Duodenitis without bleeding; Z86.711 Personal history of pulmonary embolism; Z95.1 Presence of aortocoronary bypass graft; Z79.01 Long term (current) use of anticoagulants; Z87.891 Personal history of nicotine dependence; Z88.8 Allergy status to other drugs, medicaments and biological substances; Z85.46 Personal history of malignant neoplasm of prostate; Z79.82 Long term (current) use of aspirin; Z79.899 Other long term (current) drug therapy; Z90.49 Acquired absence of other specified parts of digestive tract; R50.9 Fever, unspecified; R53.1 Weakness; W01.0XXA Fall on same level from slipping, tripping and stumbling without subsequent striking against object, initial encounter
CPT/HCPCS: 36415; 71045; 74176; 80048; 80076; 81001; 82962; 83036; 83605; 83690; 83735; 84100; 84484; 85027; 85610; 87040; 87086; 87804; 93005; 93010; A9270-GY; J1160; J1815-GY; J1940; J2543; J3475; J3490; J7030; J7040; J7050